=== PATIENT | female | born 1970 | race Two or more races ===

== ENCOUNTER 2021-09-03 11:26 | Emergency (ER) | payer OTHER ==
[~2021-09-03] VITALS: Ht 152.4 cm; Wt 59.0 kg
[2021-09-03] MEDS ORDERED: VALSARTAN80 MG PO (11:48)
== END 2021-09-03 14:22 | disposition home or self-care (01) ==
LOC: ER 11:26
DX: S90.122A Contusion of left lesser toe(s) without damage to nail, initial encounter (principal); W18.09XA Striking against other object with subsequent fall, initial encounter; Y93.89 Activity, other specified; Y92.013 Bedroom of single-family (private) house as the place of occurrence of the external cause; Y99.8 Other external cause status